=== PATIENT | male | born 2005 | race Two or more races ===

== ENCOUNTER 2024-12-11 04:12 | Emergency (ER) | payer SELFPAY ==
--- NOTE | 2024-12-11 04:18 | EDNOTE_ITS ---
ED Psych RME/HPI General Stated Complaint: SI Time Seen by Provider: 12/11/24 04:17 Arrival date/time: 12/11/24 04:12 RME / HPI RME / HPI Narrative: This section includes all my notes and documentations, including HPI, PE, and ED course. Tutu Castaneda MD HPI: 19 y/o male ALYSSAA after being picked up by [facility] presents to ED c/o suicidal ideation since yesterday. Patient inflicted harm on himself with the use of barbed-wire, on his arms. [facility] were called due to patient and girlfriend were outside wrestling, she was trying to prevent patient from hurting himself. Patient admits to being under the influence of alcohol and marijuana. Reports suicidal ideation for more than 1 year and last attempt at self-harm and suicide was approximately 6 months ago. Denies homicidal ideation, auditory or visual hallucinations. Never given psychiatric diagnoses. Never prescribed psychiatric medications. Never admitted to psychiatric unit. No other complaints. ROS: All negative except as documented in HPI. Physical Exam: General: Alert and oriented. Eyes: Conjunctivae and lids clear. EOMI. PERRL. ENT: No nasal congestion. Neck: Supple. Heart: RRR. Lungs: No respiratory distress. Good air movement. No rhonchi, wheezing, rales. Abdomen: Soft and nontender. Skin: Warm and dry. Multiple abrasions on bilateral upper extremities, varying size and shape. Neuro: Alert and oriented X 3. Cranial Nerves II-XII grossly intact. No peripheral motor deficits. Musculoskeletal: All major joints and bones are not tender with no limited ROM. I reviewed EMS notes. I ordered wound care, topical ABX, Keflex, Tdap, and diagnostic tests. At 6 AM on 12/11/2024, the care of the patient was transferred to Dr. Aguilera. 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 ALCOHOL: Current ALCOHOL LAST INTAKE: Just Prior to Arrival ED Exam Narrative Physical exam: Refer to HPI Course Quality Measures none Orders Category Date Time Status Wound Care [Wound Care] NOW Care 12/11/24 04:38 Ordered Referral Psych Eval Stat Cons 12/11/24 04:24 Active Acetaminophen Stat Lab 12/11/24 04:37 Ordered Alcohol, Blood Medical Stat Lab 12/11/24 04:37 Ordered Amylase Stat Lab 12/11/24 04:37 Ordered Bilirubin,Direct Stat Lab 12/11/24 04:37 Ordered CBC Stat Lab 12/11/24 04:37 Ordered CMP [Comprehensive Metabolic Panel] Stat Lab 12/11/24 04:37 Ordered Drug Screen,Urine Stat Lab 12/11/24 04:37 Ordered Lipase Stat Lab 12/11/24 04:37 Ordered Magnesium Stat Lab 12/11/24 04:37 Ordered PT [Prothrombin Time with INR] Stat Lab 12/11/24 04:37 Ordered PTT [Partial Thromboplastin Time] Stat Lab 12/11/24 04:37 Ordered Salicylate Stat Lab 12/11/24 04:37 Ordered Bacitracin Oint pkt Med 12/11/24 04:37 Once 1 gm TOP X1 ONE TET,DIP/PERT AC (Adult)-Tdap [Boostrix Adult (Tdap) Med 12/11/24 04:37 Once Vacc] 0.5 ml IMI .ONCE ONE cephALEXin [Keflex] Med 12/11/24 04:37 Once 1,000 mg PO X1 ONE Vital Signs Vital signs: Vital Signs Temperature 98.2 F 12/11/24 04:27 Pulse Rate 97 12/11/24 04:27 Respiratory Rate 18 12/11/24 04:27 Blood Pressure 130/67 12/11/24 04:27 Pulse Oximetry (%) 96 12/11/24 04:27 Oxygen Delivery Method Room Air 12/11/24 04:27 Psych MDM Narrative MDM Narrative:: Scribe Attestation: ILiana, am scribing for and in the presence of Dr. Castaneda. Provider Notation: Although this document has been carefully reviewed, there may still be some phonetic and other typographical errors.? These errors are purely grammatical due to imperfections in the software program and should not be construed in any way to? compromise the substance of the patient's medical care during this visit. 19 y/o male BIBA after being picked up by [facility] presents to ED c/o suicidal ideation and self-harm x approximately 1 hour ago. Patient inflicted harm on himself with the use of barbed-wire. [facility] were called due to patient and girlfriend were outside fighting, trying to prevent patient from hurting himself. Patient admits to being under the influence of alcohol and marijuana. Reports suicidal ideation for more than 1 year and last attempt at self-harm and suicide was approximately 6 months ago. Denies homicidal ideation, auditory or visual hallucinations. Patient has never been diagnosed with or treated for psychiatric symptoms. No other complaints. Patient data External records reviewed:: [facility] previous records (No prior ED records available for review.) and EMS form Clinical information provided by:: patient and EMS Social determinants that could affect healthcare access:: substance use (Marijuana, Alcohol) Patient has the following chronic illnesses:: None reported How is presenting disease/condition affected by chronic disease/condition?: no chronic disease Evaluation data The following diagnostics were reviewed and interpreted by me:: other (specify) (Diagnostic test results are pending.) Lab and/or radiology exams considered but not ordered:: None Interpretation Summary: Diagnostic test results are pending. Medications / Prescriptions Medications or Prescriptions considered but not ordered:: None Medication administrations:: I ordered wound care, topical ABX, Keflex, and Tdap. Consultations Consultation(s) initiated? (list below): No Diagnosis Psych Differential Diagnosis: acute psychosis, chronic schizophrenia, suicidal ideation, bipolar disorder, depression, drug-induced psychotic disorder and acute anxiety Most likely diagnosis given after review of the tests above:: Suicide ideation and multiple abrasions. Admission Indicated Admission indicated?: not indicated Explain why admission is indicated or not indicated:: No psychiatric service available here. Admission Request Was there a request for admission?: No Disposition Plan Disposition Plan: other (specify) (Sign-out to Dr. Aguilera. ) Discharge Plan Problem List Clinical Impression: Suicidal ideation, Multiple abrasions Patient/Caregiver Discharge Instructions Print Language: [place]
[2024-12-11 04:26] VITALS: BMI 28.1
[2024-12-11 04:27] VITALS: BP 130/67; PULSE 97; RESP 18; TEMP 36.8; O2SAT 96
[2024-12-11 04:53] VITALS: PULSE 88; RESP 18; O2SAT 99
--- NOTE | 2024-12-11 05:07 | PC.NURSE ---
PT BECAME COMBATIVE HITTING WALL WITH FISTS, YELLING, AND CUSSING AT STAFF, GAYATRI CHRISTENSEN CALLED
[2024-12-11 05:36] LABS: Basophils # (Auto) 0.1 Thou/mm3 (0.0-0.2); Basophils % (Auto) 1 % (0-2.5); Eosinophils # (Auto) 0.1 Thou/mm3 (0.0-0.5); Eosinophils % (Auto) 1 % (0-10); Hematocrit 46.5 % (41.0-53.0); Hemoglobin 16.3 g/dL (13.5-16.0); Immature Granulocytes % (Auto) 0 % (0-0); Immature Granulocytes Auto 0.02 Thou/mm3 (0.00-0.00); Lymphocytes % (Auto) 30 % (10-50); Mean Corpuscular HGB Conc 35.1 g/dl (31.0-37.0); Mean Corpuscular Hemoglobin 30.8 pg (25.0-35.0); Mean Corpuscular Volume 88 fL (80-100); Monocytes # (Auto) 0.8 Thou/mm3 (0.0-0.8); Monocytes % (Auto) 8 % (0-12); Neutrophils # (Auto) 6.2 Thou/mm3 (1.8-7.7); Neutrophils % (Auto) 61 % (37-80); Nucleated Red Blood Cell % 0 /100 WBC (0); Platelet Count 263 Thou/mm3 (140-440); RDW Standard Deviation 43.6 fL (35.1-43.9); Red Blood Count 5.29 Miln/mm3 (4.50-5.90); White Blood Count 10.1 Thou/mm3 (3.8-10.6)
[2024-12-11 05:46] LABS: Amphetamine/Methamp Scrn,U Negative (Negative); Barbiturate Screen,Urine Negative (Negative); Benzodiazepines Screen,Urine Negative (Negative); Benzoylecgonine Screen, Ur Negative (Negative); Fentanyl Screen,Urine Negative (Negative); Opiate Screen,Urine Negative (Negative); THC Screen,Urine Positive (Negative)
[2024-12-11 05:58] LABS: Partial Thromboplastin Time 25.8 Seconds (22.0-36.0); Prothrombin Time 11.3 Seconds (9.0-12.2)
--- NOTE | 2024-12-11 06:28 | EDNOTE_ITS ---
Emergency Room Addendum Addendum Narrative: 0600: Care assumed from Dr. Castaneda, the previous shift emergency physician. Past medical, surgical, social and family history reviewed. Vitals and home medications reviewed. I will assume the care of the patient at this time, pending mental health evaluation. Patient was already medically cleared by the cardiopulmonary technician and eeg tech doctor. Please refer to the emergency department record for history and examination from initial visit.? The patient was placed in ED observation care at 12/11/2024 at 0600 hours. The patient was placed in ED observation care pending mental health evaluation. The patients past medical history, social history, and family history were reviewed. The plan of care will include serial examinations. While in ED observation the patient will have access to water, food, and personal hygiene. If the patient takes home medication(s), they will be continued in ED observation. Physical exam by me shows patient under no acute distress at this time. 1345: Mental health cleared the patient/ rescinded the psychiatric hold. Safety plan in place. 1355: Patient discharged. ED observation care ended at 12/11/2024 at 1355 hours. Diagnoses: -Suicidal ideation -Multiple abrasions to his arms, bilaterally
[2024-12-11 06:33] LABS: Acetaminophen < 2.0 mcg/mL (10.0-20.0); Alanine Aminotransferase 17 U/L (10-49); Albumin/Globulin Ratio 1.8 (1.2-2.2); Alcohol, Blood Medical 171.7 mg/dL (0-10.0); Alkaline Phosphatase 83 U/L (46-116); Anion Gap 16 (7-16); BUN/Creatinine Ratio 8 Ratio (12-20); Bilirubin,Direct 0.1 mg/dL (0.0-0.3); Bilirubin,Total 0.4 mg/dL (0.3-1.2); Blood Urea Nitrogen 9 mg/dL (9-23); Calcium 9.4 mg/dL (8.3-10.6); Calcium (Corrected) 9.4 mg/dL (8.5-10.1); Carbon Dioxide 18.2 mMol/L (20.0-31.0); Chloride 106 mMol/L (98-107); Creatinine (Component) 1.2 mg/dL (0.6-1.3); Estimated Creatinine Clearance 102.8 mL/min (>60); Globulin 2.8 gm/dL (2.3-3.5); Glucose 108 mg/dL (74-106); Magnesium 2.1 mg/dL (1.6-2.6); Osmolality,Calculated 279 (275-295); Potassium 3.5 mMol/L (3.4-5.1); Salicylate < 3.0 mg/dL; Sodium 140 mMol/L (136-145); Total Protein 7.8 gm/dL (5.7-8.2); eGFR > 60 See Note
[2024-12-11 06:45] LABS: Amylase 56 U/L (30-118); Lipase 37 U/L (12-53)
[2024-12-11 10:34] VITALS: BP 126/68; PULSE 88; RESP 17; TEMP 36.6; O2SAT 98
[2024-12-11] MEDS: cephALEXin 250 MG CAPSULE 1000 MG PO (13:10)
[2024-12-11] MEDS: DIPHTH,PERTUSS(ACELL),TET VAC 0.5 ML SYR- ADULT IMi (13:11)
[2024-12-11] MEDS: BACITRACIN OINT 1 GM PACKET TOP (13:13)
[2024-12-11 13:35] VITALS: BP 149/71; PULSE 84; RESP 16; TEMP 36.6; O2SAT 97
--- NOTE | 2024-12-11 14:42 | PC.CC ---
Addendum entered by Siena Hinton 12/11/24 14:53: [employer] supported with transportation coordination- [employer] was set up for Pt. Original Note: Pt Walt De La Cruz is a 19-year-old male brought in to ED by [facility] on a 5150 DTS hold. [employer] met with pt to complete mental health assessment. Pt presents emotional as evidence Pt tearful. Pt was able to make direct eye contact as encounter progressed. Pt is noted to be alert and oriented to person, current place and year. Pt reports no hx of mental health or MH medications. Pt denies previous 5150 holds and SI attempts/self-injury behavior. Pt placed in ED 16. Pt reports living with life partner Mercedes Pascual [phone] [place] [address] [facility]. ED Filling Winder encountered Pt for mental health evaluation. ED Filling Winder explained limits of confidentiality and Pt stated he understood. ED Filling Winder used the following interventions: empathy, unconditional positive regard, Socratic dialogue including clarifying and probing questions. Pt was receptive and was able to disclosed night prior he had a difficult time with family and began drinking alcohol. ED Filling Winder used C-SSRS to support process and assessed for SI/HI, self-harming behaviors, method, access to lethal means, plan/intent. Pt was responsive to mental health evaluation and denied plan/intent for SI/HI. Pt denied hx of non-suicidal self-injury. Pt denied audio/visual hallucinations. Pt states he does not want to and is remorseful for behavior night prior. Pt reported he is wanting and willing to attend . Pt reported he will followe through with connecting to and is wanting better for self and life partner. [employer] consulted with filing and polishing supervisor SR and it was agreed to safety plan with Pt due to client denying SI/HI with no plan/intent and no hx of MH, SI- attempts/self injuries behaviors. Pt was engaged and assessed as reliable in participation in safety planning and was in agreement. [employer] provided Pt with MH and substance abuse resources.
[2024-12-11 14:45] VITALS: BP 136/68; PULSE 71; RESP 16; TEMP 36.6; O2SAT 99
== END 2024-12-11 14:46 | disposition home or self-care (01) ==
PROVIDERS: Emergency Medicine; Emergency Provider Family Medicine
DX: Z00.8 Encounter for other general examination (principal); S40.812A Abrasion of left upper arm, initial encounter; S40.811A Abrasion of right upper arm, initial encounter; X78.8XXA Intentional self-harm by other sharp object, initial encounter; Z23 Encounter for immunization
CPT/HCPCS: 36415; 80053; 80307; 80320; 80329; 82150; 82248; 83690; 83735; 85025; 85610; 85730; 90471; 90715; 96127; 99284; A9270; G0480